=== PATIENT | female | born 1995 | race Caucasian/White ===

== ENCOUNTER 2023-02-10 13:35 | Emergency (ER) | payer MEDICAID ==
[~2023-02-10] VITALS: Ht 165.1 cm; Wt 108.9 kg
[2023-02-10] MEDS ORDERED: VENTOLIN HFA18 GM INH (14:11)
[2023-02-10] MEDS ORDERED: WELLBUTRIN SR150 MG PO (14:11)
[2023-02-10] MEDS ORDERED: FLOVENT HFA12 GM INH (14:12)
[2023-02-10] MEDS ORDERED: PREDNISONE20 MG PO (15:39)
[2023-02-10 15:55] VITALS: BP 120/66
== END 2023-02-10 15:50 | disposition home or self-care (01) ==
LOC: ED 13:35
DX: J06.9 Acute upper respiratory infection, unspecified (principal); J45.901 Unspecified asthma with (acute) exacerbation; Z79.899 Other long term (current) drug therapy
CPT/HCPCS: 99284

== ENCOUNTER 2024-07-29 17:53 | Emergency (ER) | payer MEDICAID ==
[~2024-07-29] VITALS: Ht 165.1 cm; Wt 109.8 kg
[~2024-07-29 17:53] MED LIST: FLOVENT HFA12 GM INH; ONDANSETRON ODT8 MG PO; PREDNISONE20 MG PO; VENTOLIN HFA18 GM INH; WELLBUTRIN SR150 MG PO
[2024-07-29 21:16] LABS: BASOPHILS 0.7 % (0-2); EOSINOPHILS 1.1 % (0-6); HEMATOCRIT 42.1 % (35.0-50.0); HEMOGLOBIN 13.8 g/dL (12.0-18.0); LYMPHOCYTES 23.4 % (24-44); MCH 28.4 (27-36); MCHC 32.7 g/dl (30-36); MCV 86.8 fl (81-99); NEUTROPHILS 67.8 % (39-80); PLATELET COUNT 320 K/uL (140-440); RBC 4.85 M/ul (4.3-5.7); RDW 13.8 (10.5-15.0)
[2024-07-29 21:32] LABS: ALBUMIN 3.3 g/dL (3.4-5.0); ALBUMIN/GLOBULIN RATIO 0.73 (1.1-2.4); ANION GAP 11.9 (7-21); BILIRUBIN, TOTAL 0.2 ng/dL (0.2-1.0); BUN/CREATININE RATIO 11.76 (6.0-28.6); CALCIUM 8.7 mg/dL (8.5-10.1); CREATININE, SERUM 0.85 mg/dL (0.55-1.02); POTASSIUM 3.9 mmol/L (3.5-5.1); PROTEIN, TOTAL 7.8 g/dL (6.4-8.2)
[2024-07-29 21:38] LABS: AMPHETAMINES, URINE NEGATIVE (NEGATIVE); BARBITURATES, URINE NEGATIVE (NEGATIVE); BENZODIAZEPINE, URINE NEGATIVE (NEGATIVE); BUPRENORPHINE, URINE NEGATIVE (NEGATIVE); CANNABINOID, URINE POSITIVE (NEGATIVE); COCAINE, URINE NEGATIVE (NEGATIVE); ECSTASY, URINE NEGATIVE (NEGATIVE); FENTANYL, URINE NEGATIVE (NEGATIVE); METHADONE, URINE NEGATIVE (NEGATIVE); OPIATES, URINE NEGATIVE (NEGATIVE); OXYCODONE, URINE NEGATIVE (NEGATIVE); PHENCYCLIDINE, URINE NEGATIVE (NEGATIVE)
[2024-07-29 21:58] VITALS: BP 139/86
== END 2024-07-29 21:58 | disposition home or self-care (01) ==
LOC: ED 17:53
PROVIDERS: Internal Medicine
DX: G40.909 Epilepsy, unspecified, not intractable, without status epilepticus (principal); J45.909 Unspecified asthma, uncomplicated; Z79.899 Other long term (current) drug therapy
CPT/HCPCS: 36415; 70450; 80053; 80307; 83735; 85025; 99284-25

== ENCOUNTER 2024-10-01 03:08 | Emergency (ER) | payer MEDICAID ==
[~2024-10-01] VITALS: Ht 165.1 cm; Wt 111.9 kg
[2024-10-01] MEDS ORDERED: KETOROLAC TROMETHAMINE 30 MG/ML VIAL IV ONE (03:30)
[2024-10-01 03:52] LABS: BASOPHILS 0.7 % (0-2); EOSINOPHILS 0.9 % (0-6); HEMATOCRIT 40.5 % (35.0-50.0); HEMOGLOBIN 13.6 g/dL (12.0-18.0); LYMPHOCYTES 19.6 % (24-44); MCH 28.5 (27-36); MCHC 33.5 g/dl (30-36); MCV 85.1 fl (81-99); MONOCYTES 8.9 % (0-12); NEUTROPHILS 69.9 % (39-80); PLATELET COUNT 254 K/uL (140-440); RBC 4.76 M/ul (4.3-5.7); RDW 13.6 (10.5-15.0)
[2024-10-01 04:29] LABS: INR 1.13 (0.80-1.30)
[2024-10-01 04:31] LABS: ALBUMIN/GLOBULIN RATIO 0.81 (1.1-2.4); ANION GAP 10.5 (7-21); BILIRUBIN, TOTAL 0.3 mg/dL (0.2-1.0); BUN/CREATININE RATIO 10.98 (6.0-28.6); CALCIUM 8.2 mg/dL (8.5-10.1); CREATININE, SERUM 0.91 mg/dL (0.55-1.02); POTASSIUM 3.5 mmol/L (3.5-5.1); PROTEIN, TOTAL 6.7 g/dL (6.4-8.2)
[2024-10-01 04:53] VITALS: BP 108/69
--- NOTE | 2024-10-02 10:56 | EKG ---
[facility] [address] [facility] [place] [address] Signed Normal sinus rhythm with sinus arrhythmia Normal ECG No previous ECGs available Confirmed by Landy Aguirre DO ([id number]) on 10/02/2024 10:55:59 AM Electronically Signed By: LANDY AGUIRRE DO 10/02/24 1056 PATIENT NAME: HIGINIO DOMÍNGUEZ Electrocardiogram DATE OF : [birth year] PHYSICIAN: LANDY AGUIRRE DO REPORT #: [id number] REPORT IS CONFIDENTIAL AND NOT TO BE RELEASED WITHOUT AUTHORIZATION
== END 2024-10-01 04:58 | disposition home or self-care (01) ==
LOC: ED 03:08
PROVIDERS: Internal Medicine
DX: M94.0 Chondrocostal junction syndrome [Tietze] (principal); J45.909 Unspecified asthma, uncomplicated
CPT/HCPCS: 36415; 71045; 80053; 84484; 84703; 85025; 85379; 85610; 93005; 93010; 96374; 99284-25; J1885